=== PATIENT | male | born 1990 | race African-American/Black ===

== ENCOUNTER 2018-03-02 23:15 | Emergency (ER) | payer MEDICAID ==
[~2018-03-02] VITALS: Ht 188 cm; Wt 98.9 kg
[2018-03-02 23:38] VITALS: BP_SYST 125
[2018-03-03] MEDS ORDERED: KETOROLAC TROMETHAMINE 30 MG VIAL IM ONE (00:45)
[2018-03-03 01:18] VITALS: BP_SYST 132
== END 2018-03-03 01:18 | disposition home or self-care (01) ==
LOC: SED 23:15
DX: J02.9 Acute pharyngitis, unspecified (principal)
CPT/HCPCS: 36415; 86403; 87081; 96372; 99283; J1885